=== PATIENT | female | born 1930 | race Caucasian/White ===

== ENCOUNTER 2019-03-19 09:22 | Emergency (ER) | payer MEDICARE, BC ==
--- NOTE | 2019-03-19 09:47 | EDM.PDOC ---
ED HPI GENERAL MEDICAL PROBLEM - General Chief Complaint: Gastrointestinal Problem Stated Complaint: MEDICAL VIA NORTH Time Seen by Provider: 03/19/19 09:30 Source of Information: Reports: Patient, EMS History Limitations: Reports: No Limitations - History of Present Illness INITIAL COMMENTS - FREE TEXT/NARRATIVE: 80-year-old female whose been feeling fatigued and shortness of breath with activity, dark stools for the last 3 or 4 days presented to the [facility] and was found to have a hemoglobin of 5.5. An ambulance was called and she was sent to the emergency room. She is not having pain in her stomach or abdomen. No nausea or vomiting. She does have significant arthritis pain from her neck to her tailbone, and his been taking frequent doses of naproxen over the past several days. Onset: Gradual Duration: Day(s): (Several days) Worsens with: Reports: Other (Activity causes more shortness of breath and dizziness) Associated Symptoms: Reports: Malaise, Weakness. Denies: Fever/Chills, Headaches - Related Data Allergies Allergy/AdvReac Type Severity Reaction Status Date / Time morphine Allergy Itching Verified 03/19/19 09:33 Home Meds: Home Meds Hydrochlorothiazide 12.5 mg PO DAILY 08/23/15 [History] Lisinopril [Prinivil] 20 mg PO DAILY 08/23/15 [History] Oxybutynin Chloride [Ditropan Xl] 5 mg PO BID 08/23/15 [History] Fluticasone Propionate [Flonase] 2 spray ALLIE DAILY 02/27/16 [History] Cyanocobalamin (Vitamin B-12) [Cyanocobalamin Injection] 1,000 mcg IJ Q30D 02/24 [History] Fexofenadine [Sherrie] 180 mg PO DAILY PRN 02/24/19 [History] Naproxen Sodium [Aleve] 220 mg PO BID PRN 03/19/19 [History] Past Medical History HEENT History: Reports: Impaired Vision, Macular Degeneration, Other (See Below) Other HEENT History: legally blind in left eye Cardiovascular History: Reports: High Cholesterol, Hypertension Genitourinary History: Reports: 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 Endocrine/Metabolic History: Reports: Obesity/BMI 30+ Hematologic History: Reports: B12 Deficiency, Blood Transfusion(s) Oncologic (Cancer) History: Reports: Uterine - Infectious Disease History Infectious Disease History: Reports: Chicken Pox, Measles, Mumps, Rubella - Past Surgical History HEENT Surgical History: Reports: Cataract Surgery, Eye Surgery, Laser Surgery, LASIK GI Surgical History: Reports: Appendectomy, Cholecystectomy, Colonoscopy Female Surgical History: Reports: Breast Biopsy, Hysterectomy Endocrine Surgical History: Reports: None Musculoskeletal Surgical History: Reports: Knee Replacement Oncologic Surgical History: Reports: Lumpectomy Social & Family History - Family History Family Medical History: Noncontributory - Caffeine Use Caffeine Use: Reports: Coffee ED ROS GENERAL - Review of Systems Review Of Systems: See Below Constitutional: Reports: Malaise. Denies: Fever, Chills HEENT: Reports: No Symptoms Respiratory: Reports: Shortness of Breath Cardiovascular: Denies: Chest Pain (With activity) GI/Abdominal: Reports: Melena. Denies: Abdominal Pain, Nausea, Vomiting : Reports: No Symptoms Musculoskeletal: Reports: Neck Pain, Back Pain (Chronic arthritic pain) Skin: Reports: Pallor Neurological: Reports: Dizziness, Weakness. Denies: Headache Psychiatric: Reports: No Symptoms ED EXAM, GENERAL - Physical Exam Exam: See Below Exam Limited By: No Limitations General Appearance: Alert, No Apparent Distress Eye Exam: Bilateral Eye: Other (Pale conjunctiva) Head: Atraumatic Respiratory/Chest: No Respiratory Distress, Lungs Clear Cardiovascular: Regular Rate, Rhythm. No: Tachycardia GI/Abdominal: Soft, Non-Tender Extremities: No: Pedal Edema Neurological: Alert, Oriented Psychiatric: Normal Affect, Normal Mood Skin Exam: Warm, Dry, Pallor Course - Vital Signs Last Recorded V/S: Last Vital Signs Temp 99 F 03/19/19 12:39 Pulse 72 03/19/19 12:39 Resp 19 03/19/19 12:39 BP 193/67 H 03/19/19 12:39 Pulse Ox 99 03/19/19 12:39 - Orders/Labs/Meds Orders: Active Orders 24 hr Category Date Time Status PATIENT RETYPE [BBK] Stat Lab 03/19/19 09:41 Results RED BLOOD CELLS LP [BBK] Stat Lab 03/19/19 09:41 Results TYPE AND SCREEN [BBK] Stat Lab 03/19/19 09:41 Results Labs: Laboratory Tests 03/19/19 03/19/19 03/19/19 Range/Units 09:41 10:00 10:00 WBC 6.3 (4.5-11.0) K/uL RBC 2.32 L (3.30-5.50) M/uL Hgb 7.0 L (12.0-15.0) g/dL Hct 22.8 L (36.0-48.0) % MCV 98 (80-98) fL MCH 30 (27-31) pg MCHC 31 L (32-36) % Plt Count 376 (150-400) K/uL Neut % (Auto) 51 (36-66) % Lymph % (Auto) 25 (24-44) % Rich % (Auto) 17 H (2-6) % Eos % (Auto) 7 H (2-4) % Baso % (Auto) 1 (0-1) % Sodium 140 (140-148) mmol/L Potassium 3.6 (3.6-5.2) mmol/L Chloride 106 (100-108) mmol/L Carbon Dioxide 23 (21-32) mmol/L Anion Gap 10.9 (5.0-14.0) mmol/L BUN 21 H (7-18) mg/dL Creatinine 0.8 (0.6-1.0) mg/dL Est Cr Clr Drug Dosing 34.91 mL/min Estimated GFR (MDRD) > 60 (>60) Glucose 102 (74-106) mg/dL Calcium 8.5 (8.5-10.1) mg/dL Blood Type A POSITIVE Gel Antibody Screen Negative Crossmatch See Detail - Re-Assessments/Exams Free Text/Narrative Re-Assessment/Exam: 03/19/19 10:05 2 units of packed RBCs were typed and crossed, transfusion will begin when the first unit is ready. The pain is drawn for CBC and BMP were done, hemoglobin here is 7.0. I did talk with the transferring physician from the clinic, a fingerstick hemoglobin was 5.5. Patient wants to be transferred to [facility]. We have no ICU beds available. 03/19/19 10:26 BMP is very reassuring, normal. I did get a call from her primary, he felt the chest x-ray looked normal but a call from radiology said there was a concern for a small right lower lobe infiltrate. The patient does not present clinically with pneumonia. I asked for the films to be transferred so they will be available to the hospitalist service in [facility], who kindly accepted transfer of the patient for inpatient evaluation and treatment for blood loss anemia. Departure - Departure Time of Disposition: 12:41 Disposition: DC/Tfer to Other 70 Clinical Impression: Acute blood loss anemia GI bleed Qualifiers: GI bleed type/associated pathology: melena Qualified Code(s): K92.1 - Melena - Discharge Information Referrals: PCP,None [Primary Care Provider] - Forms: ED Department Discharge Care Plan Goals: Patient will be transferred to [facility], acceptance by the hospitalist service at 10:20 AM. She will receive 2 units of packed RBC transfusion starting here in the emergency room and continued in route. - My Orders Last 24 Hours: My Active Orders 03/19/19 09:41 PATIENT RETYPE [BBK] Stat RED BLOOD CELLS LP [BBK] Stat TYPE AND SCREEN [BBK] Stat - Assessment/Plan Last 24 Hours: My Active Orders 03/19/19 09:41 PATIENT RETYPE [BBK] Stat RED BLOOD CELLS LP [BBK] Stat TYPE AND SCREEN [BBK] Stat
[2019-03-19 12:38] VITALS: PULSE 72
[2019-03-19 12:40] VITALS: BP 193/67
== END 2019-03-19 12:39 | disposition other institution (70) ==
LOC: JP.ED 09:22
DX: D62 Acute posthemorrhagic anemia (principal); K92.1 Melena; H54.40 Blindness, one eye, unspecified eye; I10 Essential (primary) hypertension; E66.9 Obesity, unspecified; Z68.29 Body mass index [BMI] 29.0-29.9, adult; Z88.6 Allergy status to analgesic agent; Z79.899 Other long term (current) drug therapy
CPT/HCPCS: 36415; 36430; 80048; 85025; 86850; 86900; 86901; 86920; 86922; 99285; P9016

== ENCOUNTER 2019-07-21 19:29 | Inpatient (IN) | payer MEDICARE, BC ==
[2019-07-21] MEDS ORDERED: Sodium Chloride 0.9% 10 ML Syringe FLUSH PRN ×2 (20:15)
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
--- NOTE | 2019-07-21 21:47 | CRLCT ---
INDICATION: Syncope, fall, headache TECHNIQUE: Head CT without contrast. COMPARISON: None. FINDINGS: CSF spaces: Within normal limits for age. Brain parenchyma: There are nonspecific low attenuation white matter changes consistent with chronic microvascular disease. No hemorrhage. Partially calcified 3.7 x 3.1 cm mass along posterior aspect right tentorium. This causes mild mass effect the 4th ventricle. There is no significant surrounding edema. No hydrocephalus. Skull base and calvarium: The visualized paranasal sinuses and mastoid air cells demonstrate no acute or significant findings. The visualized orbits are grossly unremarkable. No skull fractures. There is intracranial atherosclerosis. There is a 2.5 x 0.6 cm soft tissue mass at the vertex of the scalp. IMPRESSION: No acute abnormality. Partially calcified mass along the posterior aspect of the right tentorium. This likely represents a meningioma. Minimal mass effect on the 4th ventricle. No hydrocephalus. Recommend nonemergent MR with and without IV contrast for further evaluation. Soft tissue mass in the scalp at the vertex. Correlate with physical exam. Please note that all CT scans at this facility use dose modulation, iterative reconstruction, and/or weight-based dosing when appropriate to reduce radiation dose to as low as reasonably achievable. Dictated by Aisha Taylor MD @ Jul 21 2019 9:42PM Signed by Dr. Aisha Taylor @ Jul 21 2019 9:47PM
[2019-07-21] MEDS ORDERED: Acetaminophen 325 MG Tab PO ONE (22:09)
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
[2019-07-22] MEDS ORDERED: Albuterol 0.083% 2.5 MG/3 ML Neb Soln NEB PRN (00:12)
[2019-07-22] MEDS ORDERED: LORazepam 2 MG/ML SDV IV PRN (00:12)
[2019-07-22] MEDS ORDERED: Ondansetron 4 MG Tab.DIS PO PRN (00:12)
[2019-07-22] MEDS: cefTRIAXone 1 GM in Sodium Chloride 0.9% 50 ML IV SCH ×2 (00:20→22:06)
[2019-07-22] MEDS: Sodium Chloride 0.9% 1,000 ML IV SCH ×2 (00:25→08:32)
[2019-07-22] MEDS: oxyCODONE 5 MG Tab PO PRN ×3 (00:54→22:11)
[2019-07-22] MEDS: Acetaminophen 325 MG Tab PO PRN ×2 (05:05→19:21)
[2019-07-22] MEDS: Lisinopril 20 MG Tab PO SCH (08:13)
[2019-07-22] MEDS: Pantoprazole 40 MG Vial IVPUSH SCH (08:14)
[2019-07-22] MEDS: Hydrochlorothiazide 12.5 MG Cap PO SCH (08:15)
--- NOTE | 2019-07-22 11:56 | PCM.PN ---
- General Info Date of Service: 07/22/19 Subjective Update: Ms. Garibay is an 89-year-old woman who was admitted through the emergency department last night after she fell at home and was found to have underlying urinary tract infection. There was some question as to whether she had experienced a syncopal episode, she strongly denies having passed out and reports that this was a fall instead of syncope. She has developed some progressive weakness and has had difficulty with recent falls. She was noted to have an elevated alcohol level and admits to having 2 drinks every night. She had been diagnosed with urinary tract infection on the day prior to admission but had not started antibiotic therapy yet. Functional Status: Reports: Tolerating Diet, Ambulating, Urinating - Review of Systems General: Reports: Weakness, Fatigue. Denies: Fever, Chills Pulmonary: Reports: No Symptoms Cardiovascular: Reports: No Symptoms Gastrointestinal: Reports: No Symptoms Genitourinary: Reports: No Symptoms - Patient Data Vitals - Most Recent: Last Vital Signs Temp 97.2 F 07/22/19 10:00 Pulse 86 07/22/19 10:00 Resp 18 07/22/19 10:00 BP 145/46 H 07/22/19 10:00 Pulse Ox 96 07/22/19 10:00 Weight - Most Recent: 160 lb I&O - Last 24 Hours: Intake & Output 07/21/19 07/22/19 07/22/19 22:59 06:59 14:59 Intake Total 590 300 Output Total 400 250 Balance 190 50 Lab Results Last 24 Hours: Laboratory Results - last 24 hr 07/21/19 07/21/19 07/21/19 Range/Units 19:56 19:56 19:56 WBC 7.9 (4.5-11.0) K/uL RBC 3.56 (3.30-5.50) M/uL Hgb 11.5 L D (12.0-15.0) g/dL Hct 35.6 L (36.0-48.0) % MCV 100 H (80-98) fL MCH 32 H (27-31) pg MCHC 32 (32-36) % Plt Count 279 (150-400) K/uL Neut % (Auto) 47 (36-66) % Lymph % (Auto) 38 (24-44) % Sherman % (Auto) 11 H (2-6) % Eos % (Auto) 4 (2-4) % Baso % (Auto) 0 (0-1) % Sodium 140 (140-148) mmol/L Potassium 3.6 (3.6-5.2) mmol/L Chloride 103 (100-108) mmol/L Carbon Dioxide 21 (21-32) mmol/L Anion Gap 16.1 H (5.0-14.0) mmol/L BUN 20 H (7-18) mg/dL Creatinine 0.9 (0.6-1.0) mg/dL Est Cr Clr Drug Dosing 30.44 mL/min Estimated GFR (MDRD) 59 L (>60) Glucose 111 H (74-106) mg/dL Lactic Acid (0.4-2.0) mmol/L Calcium 8.5 (8.5-10.1) mg/dL Total Bilirubin 0.2 (0.2-1.0) mg/dL AST 13 L (15-37) U/L ALT 24 (12-78) U/L Alkaline Phosphatase 51 (46-116) U/L Total Protein 7.6 (6.4-8.2) g/dL Albumin 3.5 (3.4-5.0) g/dL Globulin 4.1 H (2.3-3.5) g/dL Albumin/Globulin Ratio 0.9 L (1.2-2.2) Urine Color (YELLOW) Urine Appearance (CLEAR) Urine pH (5.0-8.0) Ur Specific [place] (1.008-1.030) Urine Protein (NEGATIVE) mg/dL Urine Glucose (UA) (NEGATIVE) mg/dL Urine Ketones (NEGATIVE) mg/dL Urine Occult Blood (NEGATIVE) Urine Nitrite (NEGATIVE) Urine Bilirubin (NEGATIVE) Urine Urobilinogen (0.2-1.0) EU/dL Ur Leukocyte Esterase (NEGATIVE) Urine RBC (0-5) Urine WBC (0-5) Ur Epithelial Cells Amorphous Sediment Urine Bacteria Urine Mucus Ethyl Alcohol 129 mg/dL 07/21/19 07/21/19 07/22/19 Range/Units 20:39 21:18 01:15 WBC (4.5-11.0) K/uL RBC (3.30-5.50) M/uL Hgb (12.0-15.0) g/dL Hct (36.0-48.0) % MCV (80-98) fL MCH (27-31) pg MCHC (32-36) % Plt Count (150-400) K/uL Neut % (Auto) (36-66) % Lymph % (Auto) (24-44) % Sherman % (Auto) (2-6) % Eos % (Auto) (2-4) % Baso % (Auto) (0-1) % Sodium (140-148) mmol/L Potassium (3.6-5.2) mmol/L Chloride (100-108) mmol/L Carbon Dioxide (21-32) mmol/L Anion Gap (5.0-14.0) mmol/L BUN (7-18) mg/dL Creatinine (0.6-1.0) mg/dL Est Cr Clr Drug Dosing mL/min Estimated GFR (MDRD) (>60) Glucose (74-106) mg/dL Lactic Acid 3.4 H 2.6 H (0.4-2.0) mmol/L Calcium (8.5-10.1) mg/dL Total Bilirubin (0.2-1.0) mg/dL AST (15-37) U/L ALT (12-78) U/L Alkaline Phosphatase (46-116) U/L Total Protein (6.4-8.2) g/dL Albumin (3.4-5.0) g/dL Globulin (2.3-3.5) g/dL Albumin/Globulin Ratio (1.2-2.2) Urine Color Yellow (YELLOW) Urine Appearance Clear (CLEAR) Urine pH 6.0 (5.0-8.0) Ur Specific [place] 1.015 (1.008-1.030) Urine Protein Negative (NEGATIVE) mg/dL Urine Glucose (UA) Negative (NEGATIVE) mg/dL Urine Ketones Negative (NEGATIVE) mg/dL Urine Occult Blood Trace-lysed H (NEGATIVE) Urine Nitrite Negative (NEGATIVE) Urine Bilirubin Negative (NEGATIVE) Urine Urobilinogen 0.2 (0.2-1.0) EU/dL Ur Leukocyte Esterase Small H (NEGATIVE) Urine RBC 0-5 (0-5) Urine WBC 10-20 H (0-5) Ur Epithelial Cells Few Amorphous Sediment Few Urine Bacteria Rare Urine Mucus Not seen Ethyl Alcohol mg/dL 07/22/19 07/22/19 07/22/19 Range/Units 05:35 05:35 05:35 WBC 7.3 (4.5-11.0) K/uL RBC 3.29 L (3.30-5.50) M/uL Hgb 10.5 L (12.0-15.0) g/dL Hct 33.1 L (36.0-48.0) % MCV 101 H (80-98) fL MCH 32 H (27-31) pg MCHC 32 (32-36) % Plt Count 256 (150-400) K/uL Neut % (Auto) 57 (36-66) % Lymph % (Auto) 27 (24-44) % Sherman % (Auto) 12 H (2-6) % Eos % (Auto) 3 (2-4) % Baso % (Auto) 0 (0-1) % Sodium 141 (140-148) mmol/L Potassium 4.2 (3.6-5.2) mmol/L Chloride 107 (100-108) mmol/L Carbon Dioxide 22 (21-32) mmol/L Anion Gap 11.7 (5.0-14.0) mmol/L BUN 16 (7-18) mg/dL Creatinine 0.9 (0.6-1.0) mg/dL Est Cr Clr Drug Dosing 30.44 mL/min Estimated GFR (MDRD) 59 L (>60) Glucose 89 (74-106) mg/dL Lactic Acid 1.9 (0.4-2.0) mmol/L Calcium 7.8 L (8.5-10.1) mg/dL Total Bilirubin (0.2-1.0) mg/dL AST (15-37) U/L ALT (12-78) U/L Alkaline Phosphatase (46-116) U/L Total Protein (6.4-8.2) g/dL Albumin (3.4-5.0) g/dL Globulin (2.3-3.5) g/dL Albumin/Globulin Ratio (1.2-2.2) Urine Color (YELLOW) Urine Appearance (CLEAR) Urine pH (5.0-8.0) Ur Specific [place] (1.008-1.030) Urine Protein (NEGATIVE) mg/dL Urine Glucose (UA) (NEGATIVE) mg/dL Urine Ketones (NEGATIVE) mg/dL Urine Occult Blood (NEGATIVE) Urine Nitrite (NEGATIVE) Urine Bilirubin (NEGATIVE) Urine Urobilinogen (0.2-1.0) EU/dL Ur Leukocyte Esterase (NEGATIVE) Urine RBC (0-5) Urine WBC (0-5) Ur Epithelial Cells Amorphous Sediment Urine Bacteria Urine Mucus Ethyl Alcohol mg/dL Med Orders - Current: Current Medications Acetaminophen (Tylenol) 650 mg PO Q4H PRN PRN Reason: Pain (Mild 1-3)/fever Last Admin: 07/22/19 05:05 Dose: 650 mg Albuterol (Proventil Neb Soln) 2.5 mg NEB Q4H PRN PRN Reason: Shortness Of Breath/wheezing Hydrochlorothiazide (Hydrochlorothiazide) 12.5 mg PO DAILY [facility] Last Admin: 07/22/19 08:15 Dose: 12.5 mg Ceftriaxone Sodium 1 gm/ (Sodium Chloride) 50 mls @ 100 mls/hr IV Q24H [facility] Last Admin: 07/22/19 00:20 Dose: 100 mls/hr Lisinopril (Prinivil) 20 mg PO DAILY [facility] Last Admin: 07/22/19 08:13 Dose: 20 mg Lorazepam (Ativan) 1 mg IV Q6H PRN PRN Reason: Nausea/Vomiting Last Admin: 07/22/19 05:07 Dose: 1 mg Ondansetron HCl (Zofran Odt) 4 mg PO Q6H PRN PRN Reason: Nausea able to take PO Oxycodone HCl (Oxycodone) 5 mg PO Q4H PRN PRN Reason: Pain (moderate 4-6) Last Admin: 07/22/19 00:54 Dose: 5 mg Pantoprazole Sodium (Protonix Iv) 40 mg IVPUSH ACBREAKFAST [facility] Last Admin: 07/22/19 08:14 Dose: 40 mg Sodium Chloride (Saline Flush) 10 ml FLUSH ASDIRECTED PRN PRN Reason: Keep Vein Open Last Admin: 07/21/19 21:25 Dose: 10 ml Sodium Chloride (Saline Flush) 10 ml FLUSH ASDIRECTED PRN PRN Reason: Keep Vein Open Last Admin: 07/21/19 21:40 Dose: 10 ml Discontinued Medications Acetaminophen (Tylenol) 650 mg PO NOW ONE Stop: 07/21/19 22:10 Last Admin: 07/21/19 22:23 Dose: 650 mg Sodium Chloride (Normal Saline) 1,000 mls @ 125 mls/hr IV ASDIRECTED [facility] Last Admin: 07/22/19 08:32 Dose: 125 mls/hr - Exam Quality Assessment: DVT Prophylaxis General: Alert, Oriented, Cooperative, Mild Distress Lungs: Clear to Auscultation, Normal Respiratory Effort Cardiovascular: Regular Rate, Regular Rhythm, No Murmurs GI/Abdominal Exam: Soft, Non-Tender, No Organomegaly, No Distention Extremities: Non-Tender, No Pedal Edema Sepsis Event Note - Evaluation Sepsis Screening Result: No Definite Risk - Focused Exam Vital Signs: Vital Signs Temp Pulse Resp BP BP BP Pulse Ox 07/22/19 10:00 97.2 F 86 18 145/46 H 96 07/22/19 08:13 180/65 H 07/22/19 06:12 76 18 176/56 H 94 L 07/22/19 04:46 98.0 F 79 20 185/54 H 95 07/22/19 00:12 98 F 82 18 182/55 H 180/65 H 94 L Date Exam was Performed: 07/22/19 Time Exam was Performed: 11:51 - Problem List Review Problem List Initiated/Reviewed/Updated: Yes - My Orders Last 24 Hours: My Active Orders 07/22/19 11:02 Convert IV to Saline Lock [OM.PC] Routine 07/22/19 11:03 Consult to Physical Therapy [PT Evaluation and Treatment] [CONS] Routine - Plan Plan:: ASSESSMENT / PLAN Urinary Tract Infection-feeling moderately improved and somewhat stronger this morning -Saline lock IV -IV Antibiotic- Rocephin 1 gram IV every 24 hours -Tylenol, Motrin or Oxycodone for pain control -blood cultures x2 pending -urine culture pending Fall at home-denies losing consciousness, likely secondary to underlying weakness as well as urinary tract infection. CT scan of the head showed possible meningioma -MRI Brain w wo contrast ETOH use, blood alcohol level in ER noted to be 129 -CIWAA protocol Poor Vision - unable to read print, has glasses. -fall risk. Hypertension -continue outpatient medications Diarrhea -chronic Maintenance issues -Orders home meds: chronic medication -Nutrition: regular diet -Zavala catheter - not indicated -DVT: SCD -PPI; IV Protonix 40mg daily CODE STATUS: DNR/DNI request a natural . Admission status: Admit to [address] [place] [address] Admission justification. This patient will be admitted for inpatient services and is medically appropriate meeting medical necessity for inpatient admission as outlined in my documentation. I reasonably expect the patient will require inpatient services that span. Time over 2 midnights. I reasonably expect this patient to be discharged or transferred within 96 hours after admission to the [facility]. Disposition: home Primary care provider: Bernabe Early therapist for chronic neck pain and arthritis. Hospitalist: Dr. Pagan
[2019-07-22] MEDS ORDERED: Gadoteridol 279.3 MG/ML 15 ML SDV IV SCH (14:00)
--- NOTE | 2019-07-22 14:31 | CRLMR ---
Indication: Syncope. Fall. Headache. CT shows a mass. Technique: Performed before and after IV gadolinium. Contrast: 15 cc ProHance. Comparison: CT head from 07/21/2019. Findings: There is a well-circumscribed, uniformly enhancing extra-axial mass in the lateral aspect of the right posterior fossa. This abuts the posterior aspect of the petrous ridge, the inner table of the lateral aspect of the right occipital bone, and the undersurface of the right leaf of the tentorium. The mass measures 33 x 32 x 27 mm (AP by TR by CC), maximum dimension 37 mm. The underlying right transverse and sigmoid sinuses and their junction remain patent widely patent. There is moderate edema in the right cerebellar hemisphere, but only trace rightward shift and effacement of the 4th ventricle. No edema or reaction is seen in the compressed right cerebellar parenchyma. No other abnormal contrast enhancement involving the brain parenchyma, meninges, calvarium or skull base. No evidence for acute infarct or restricted diffusion. Moderate small vessel ischemic changes. Moderate cerebral atrophy. Grossly normal flow voids are maintained in the directly imaged intracranial vascular structures. Prominent thickening of the transverse odontoid ligament complex, with posterior displacement of the cervicomedullary junction and CSF effacement from the foramen magnum. No ronda high-grade neurologic compression in the MR scan position. Both temporal bones are clear. The paranasal sinuses are essentially clear. Impression: 1. There is an enhancing extra-axial mass in the lateral aspect of the right posterior fossa, maximum dimension 37 mm. The appearance is typical for meningioma. 2. Moderate localized mass effect. Minimal midline shift. No edema or reaction in the adjacent cerebellar parenchyma. 3. The subjacent transverse and sigmoid sinuses remain patent. 4. Background moderate small vessel ischemic changes and moderate cerebral atrophy noted. Dictated by Vipul Garcia MD @ Jul 22 2019 2:14PM Signed by Dr. Vipul Garcia @ Jul 22 2019 2:29PM
[2019-07-23] MEDS: oxyCODONE 5 MG Tab PO PRN ×2 (06:27→10:29)
[2019-07-23] MEDS: Pantoprazole 40 MG Vial IVPUSH SCH (07:27)
[2019-07-23] MEDS: Hydrochlorothiazide 12.5 MG Cap PO SCH (10:14)
[2019-07-23] MEDS: Lisinopril 20 MG Tab PO SCH (10:14)
[2019-07-23 12:35] VITALS: BP 169/51; PULSE 61
--- NOTE | 2019-07-23 14:54 | PCM.DCSUM1 ---
Discharge Summary - Hospital Course Brief History: Ms. Garibay is an 89-year-old woman who was admitted through the emergency department after a fall at home secondary to weakness and underlying urinary tract infection. - Discharge Data Discharge Date: 07/23/19 Discharge Disposition: Home, W Home Health Agency 06 Condition: Stable - Referral to Home Health Date of Face to Face Encounter: 07/23/19 Reason for Homebound Status: Weakness, meningioma Primary Care Physician: PCP None Skilled Need: Home care nurse follow-up, Occupational Therapy, physical therapy - Discharge Diagnosis/Problem(s) (1) Benign meningioma of brain SNOMED Code(s): 157488285 ICD Code: D32.0 - BENIGN NEOPLASM OF CEREBRAL MENINGES Status: Acute Current Visit: Yes (2) UTI (urinary tract infection) SNOMED Code(s): 96297648 ICD Code: N39.0 - URINARY TRACT INFECTION, SITE NOT SPECIFIED Status: Acute Priority: High Current Visit: Yes Qualifiers: Urinary tract infection type: acute cystitis Hematuria presence: with hematuria Qualified Code(s): N30.01 - Acute cystitis with hematuria (3) Alcohol abuse, daily use SNOMED Code(s): 945796775 ICD Code: F10.10 - ALCOHOL ABUSE, UNCOMPLICATED Status: Acute Priority: High Current Visit: Yes - Patient Summary/Data Consults: Consultations 07/22/19 11:03 Consult to Physical Therapy [PT Evaluation and Treatment] [CONS] Routine Please Evaluate and Treat. PT Reason for Consult: Weakness, recent fall This query below is only for informational purposes and is not editable. Admission Diagnosis/Problem: Urinary tract infection Hospital Course: Ms. Garibay is an 89-year-old woman who was admitted through the emergency department last after she fell at home and was found to have underlying urinary tract infection. There was some question as to whether she had experienced a syncopal episode, she strongly denies having passed out and reports that this was a fall instead of syncope. She has developed some progressive weakness and has had difficulty with recent falls. She was noted to have an elevated alcohol level and admits to having 2 drinks every night. She had been diagnosed with urinary tract infection on the day prior to admission but had not started antibiotic therapy yet. A CT scan of the head obtained in the emergency department showed evidence of a possible right-sided meningioma. Urine culture was obtained while in the emergency department. On admission to the hospital she was given IV fluids for hydration and started on antibiotic therapy with ceftriaxone. Urine culture later grew out only mixed silvino and she will take the rest of her oral antibiotic therapy prescribed prior to admission with ciprofloxacin. MRI with and without contrast was obtained on the day after admission it did show evidence of a right-sided meningioma 3.7 cm in size. MRI Was Reviewed by Dr. Hernandez [facility], he recommended follow-up with neurosurgery in the next few weeks. Appointment will be made with Dr. Kyler Bucsh at [facility] in [place]. She was seen by physical therapy prior to discharge and will use a walker at home. Home care services including home physical therapy and Occupational Therapy will be arranged for after discharge. Activity will be as tolerated and she will resume her usual diet. - Patient Instructions Diet: Usual Diet as Tolerated Activity: As Tolerated Other/Special Instructions: Please schedule follow-up appointment with primary care provider within 1 week. Please schedule neurosurgical consult for evaluation of right meningioma. Please arrange for home care services including home physical therapy and Occupational Therapy after discharge. - Discharge Plan *PRESCRIPTION DRUG MONITORING PROGRAM REVIEWED*: Not Applicable *COPY OF PRESCRIPTION DRUG MONITORING REPORT IN PATIENT KORINA: Not Applicable Prescriptions/Med Rec: Ciprofloxacin HCl [Cipro] 250 mg PO BID #6 tablet Home Medications: Home Meds Hydrochlorothiazide 12.5 mg PO DAILY 08/23/15 [History] Lisinopril [Prinivil] 20 mg PO DAILY 08/23/15 [History] Oxybutynin Chloride [Ditropan Xl] 5 mg PO BID 08/23/15 [History] Cyanocobalamin (Vitamin B-12) [Cyanocobalamin Injection] 1,000 mcg IJ Q30D 02/24 [History] Ciprofloxacin HCl [Cipro] 250 mg PO BID #6 tablet 07/23/19 [Rx] Referrals: Kyler Busch MD [Ordering Only Provider] - (neurology from [place] will call you with appointment time.) Burke Moyer MD [Physician] - 07/31/19 10:00 am - Discharge Summary/Plan Comment DC Time >30 min.: No - Patient Data Vitals - Most Recent: Last Vital Signs Temp 97.8 F 07/23/19 12:33 Pulse 61 07/23/19 12:33 Resp 18 07/23/19 12:33 BP 169/51 H 07/23/19 12:33 Pulse Ox 98 07/23/19 12:33 Weight - Most Recent: 167 lb 4.8 oz I&O - Last 24 hours: Intake & Output 07/22/19 07/23/19 07/23/19 22:59 06:59 14:59 Intake Total 290 120 Output Total 350 Balance -60 120 SHREYA Results - Last 24 hrs: Microbiology 07/21/19 21:21 Urine Culture - Preliminary Urine, Clean Catch MIXED POSITIVE SILVINO DAY 1 Med Orders - Current: Current Medications Acetaminophen (Tylenol) 650 mg PO Q4H PRN PRN Reason: Pain (Mild 1-3)/fever Last Admin: 07/22/19 19:21 Dose: 650 mg Albuterol (Proventil Neb Soln) 2.5 mg NEB Q4H PRN PRN Reason: Shortness Of Breath/wheezing Hydrochlorothiazide (Hydrochlorothiazide) 12.5 mg PO DAILY [facility] Last Admin: 07/23/19 10:14 Dose: 12.5 mg Ceftriaxone Sodium 1 gm/ (Sodium Chloride) 50 mls @ 100 mls/hr IV Q24H [facility] Last Admin: 07/22/19 22:06 Dose: 100 mls/hr Lisinopril (Prinivil) 20 mg PO DAILY [facility] Last Admin: 07/23/19 10:14 Dose: 20 mg Lorazepam (Ativan) 1 mg IV Q6H PRN PRN Reason: Nausea/Vomiting Last Admin: 07/22/19 05:07 Dose: 1 mg Ondansetron HCl (Zofran Odt) 4 mg PO Q6H PRN PRN Reason: Nausea able to take PO Oxycodone HCl (Oxycodone) 5 mg PO Q4H PRN PRN Reason: Pain (moderate 4-6) Last Admin: 07/23/19 10:29 Dose: 5 mg Pantoprazole Sodium (Protonix) 40 mg PO ACBREAKFAST [facility] Sodium Chloride (Saline Flush) 10 ml FLUSH ASDIRECTED PRN PRN Reason: Keep Vein Open Last Admin: 07/21/19 21:25 Dose: 10 ml Sodium Chloride (Saline Flush) 10 ml FLUSH ASDIRECTED PRN PRN Reason: Keep Vein Open Last Admin: 07/21/19 21:40 Dose: 10 ml Discontinued Medications Acetaminophen (Tylenol) 650 mg PO NOW ONE Stop: 07/21/19 22:10 Last Admin: 07/21/19 22:23 Dose: 650 mg Gadoteridol (Prohance) 15 ml IV .A DIRECTED [facility] Last Admin: 07/22/19 13:44 Dose: 15 ml Sodium Chloride (Normal Saline) 1,000 mls @ 125 mls/hr IV ASDIRECTED [facility] Last Admin: 07/22/19 08:32 Dose: 125 mls/hr Pantoprazole Sodium (Protonix Iv) 40 mg IVPUSH ACBREAKFAST [facility] Last Admin: 07/23/19 07:27 Dose: 40 mg - Exam General: Reports: Alert, Oriented, Cooperative, No Acute Distress Lungs: Reports: Clear to Auscultation, Normal Respiratory Effort Cardiovascular: Reports: Regular Rate, Regular Rhythm, No Murmurs GI/Abdominal Exam: Soft, Non-Tender, No Organomegaly, No Distention Neurological: Reports: No New Focal Deficit
[2019-07-24] MEDS ORDERED: Pantoprazole 40 MG Tab.CR PO SCH (07:30)
== END 2019-07-23 15:10 | disposition home health service (06) | DRG 690 ==
LOC: JP.ED 19:29 → JP.MS 23:26
PROVIDERS: ADMIT Hospitalist; ATTEND Hospitalist
DX: N30.00 Acute cystitis without hematuria (principal); N30.01 Acute cystitis with hematuria; H35.30 Unspecified macular degeneration; E87.2 Acidosis; D32.0 Benign neoplasm of cerebral meninges; F10.10 Alcohol abuse, uncomplicated; Y90.6 Blood alcohol level of 120-199 mg/100 ml; R19.7 Diarrhea, unspecified; Z66 Do not resuscitate; H54.7 Unspecified visual loss; E53.8 Deficiency of other specified B group vitamins; Z85.42 Personal history of malignant neoplasm of other parts of uterus; Z98.49 Cataract extraction status, unspecified eye; R53.1 Weakness; Z90.710 Acquired absence of both cervix and uterus; Z96.659 Presence of unspecified artificial knee joint; Z88.6 Allergy status to analgesic agent; E78.00 Pure hypercholesterolemia, unspecified; I10 Essential (primary) hypertension; M19.90 Unspecified osteoarthritis, unspecified site; M54.9 Dorsalgia, unspecified; G89.29 Other chronic pain; F32.9 Major depressive disorder, single episode, unspecified; E66.9 Obesity, unspecified; Z90.49 Acquired absence of other specified parts of digestive tract; Z88.5 Allergy status to narcotic agent; Z79.899 Other long term (current) drug therapy; Z68.32 Body mass index [BMI] 32.0-32.9, adult
CPT/HCPCS: 36415; 70450; 70553; 80048; 80053; 80307; 81001; 83605; 85025; 87086; 93005; 97163-GP; 97530-GP; 97535-GP; 99283; 99285-25; A9270-GY; A9579; C9113; J0696; J2060; J7030; J7050

== ENCOUNTER 2019-12-11 06:28 | Day surgery (SDC) | payer MEDICARE, BC ==
[2019-12-11] MEDS ORDERED: Sodium Chloride 0.9% 1,000 ML IV SCH (07:00)
[2019-12-11] MEDS ORDERED: fentaNYL 100 MCG/2 ML SDV ONE (07:27)
[2019-12-11] MEDS ORDERED: Propofol 200 MG/20 ML SDV ONE (07:27)
[2019-12-11 09:18] VITALS: BP 168/52; PULSE 55
--- NOTE | 2019-12-11 14:22 | OR ---
DATE OF PROCEDURE: 12/11/2019 SURGEON: Addison Brumfield MD FINDINGS: 1. Diverticulosis, significant throughout entire colon. 2. Polyp, ascending colon, completely removed using cold biopsy forceps. 3. No etiology for diarrhea, no colitis, no inflammatory processes, no other etiology to explain the symptoms. COMPLICATIONS: None. MOLDED RU[employer] CUTTER: None. PREOPERATIVE DIAGNOSIS: Screening colonoscopy/history of diarrhea. POSTOPERATIVE DIAGNOSIS: Screening colonoscopy/history of diarrhea. RISKS: Risks, benefits, alternatives, and limitations including, but not limited to infection, bleeding, and perforation were explained to the patient, who wished to proceed. PROCEDURE IN DETAIL: The patient was placed in left lateral decubitus position. Digital rectal exam was performed without abnormality. Scope was introduced and advanced atraumatically to the ileocecal valve. A photo was taken of this. Scope was brought back through the ascending, transverse, descending colon, and retroflexed. No evidence of old or new blood. No masses. The diverticulosis would be described as significant throughout the entire colon with most densely concentrated in the sigmoid colon. In the ascending colon, the polyp was identified and completely removed using cold biopsy forceps. No abnormalities on retroflexion. The patient tolerated the procedure well. Addison Brumfield MD /[id number]
== END 2019-12-11 10:00 | disposition home or self-care (01) ==
LOC: JP.SDS 06:28
PROVIDERS: ATTEND Surgery
DX: Z12.11 Encounter for screening for malignant neoplasm of colon (principal); D12.2 Benign neoplasm of ascending colon; K57.30 Diverticulosis of large intestine without perforation or abscess without bleeding; I10 Essential (primary) hypertension; E78.5 Hyperlipidemia, unspecified; K21.9 Gastro-esophageal reflux disease without esophagitis
CPT/HCPCS: 45380; 88305; J2704; J3010; J7030

== ENCOUNTER 2020-03-24 17:17 | Inpatient (IN) | payer MEDICARE, BC ==
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
[2020-03-24] MEDS ORDERED: Ketorolac 30 MG/ML SDV IVPUSH ONE (19:36)
[2020-03-24] MEDS ORDERED: Cyclobenzaprine 10 MG Tab PO ONE (19:36)
[2020-03-24] MEDS ORDERED: Polyethylene Glycol 3350 Powder 17 GM Packet PO PRN (22:06)
[2020-03-24] MEDS ORDERED: Albuterol 0.083% 2.5 MG/3 ML Neb Soln NEB PRN (22:06)
[2020-03-24] MEDS ORDERED: Docusate Sodium 100 MG Cap PO PRN (22:06)
[2020-03-24] MEDS ORDERED: LORazepam 0.5 MG Tab PO PRN (22:06)
[2020-03-24] MEDS ORDERED: Ketorolac 30 MG/ML SDV IM PRN (22:06)
[2020-03-24] MEDS ORDERED: Ondansetron 4 MG Tab.DIS PO PRN (22:06)
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
[2020-03-24] MEDS: Acetaminophen 325 MG Tab PO PRN (22:28)
[2020-03-24] MEDS: Sodium Chloride 0.9% 1,000 ML IV SCH (22:28)
[2020-03-24] MEDS: Metoprolol Tartrate 25 MG Tab PO SCH (22:29)
[2020-03-24] MEDS: Melatonin 3 MG Tab PO SCH (23:12)
[2020-03-25] MEDS: Sodium Chloride 0.9% 1,000 ML IV SCH (08:13)
[2020-03-25] MEDS: Lisinopril 20 MG Tab PO SCH (08:15)
[2020-03-25] MEDS: Hydrochlorothiazide 12.5 MG Cap PO SCH (08:16)
[2020-03-25] MEDS: Pantoprazole 40 MG Tab.CR PO SCH (08:16)
[2020-03-25] MEDS: amLODIPine 5 MG Tab PO SCH (08:16)
[2020-03-25] MEDS ORDERED: Pantoprazole 40 MG Tab.CR PO SCH (09:00)
[2020-03-25] MEDS ORDERED: Lidocaine 5% 700 MG Patch TOP PRN (09:53)
[2020-03-25] MEDS: Metoprolol Tartrate 25 MG Tab PO SCH ×2 (10:43→22:14)
[2020-03-25] MEDS: Acetaminophen 325 MG Tab PO PRN ×2 (10:50→22:14)
[2020-03-25] MEDS ORDERED: LORazepam 2 MG/ML SDV IVPUSH ONE (12:08)
[2020-03-25] MEDS ORDERED: Gadoteridol 279.3 MG/ML 15 ML SDV IV SCH (13:00)
--- NOTE | 2020-03-25 13:30 | CRLMR ---
Indication: Fall, history of meningioma. Technique: Noncontrast sagittal T1, axial FLAIR, T2 turbo spine echo, and diffusion weighted images. Supplemental post contrast T1 weighted axial and coronal sequences are provided after administration of 15 mL gadolinium-based IV contrast. Comparison: MRI 07/22/2019 Findings: Mild parenchymal volume loss and chronic microangiopathic white matter changes. The midline structures are centrally located with no evidence of shift. There are no suspicious intra or extra-axial fluid collections. No evidence of restricted diffusion to suggest acute ischemia. Stable 3.8 x 3.3 x 2.8 cm (AP by TR by CC) uniformly enhancing T2 hyperintense T1 hypointense extra-axial lesion along the right lateral posterior fossa with moderate mass effect on the right cerebellar hemisphere. No parenchymal signal abnormality to suggest vasogenic edema. The right transverse and sigmoid venous sinuses remain patent with normal flow voids. 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 No abnormal contrast enhancement involving the brain parenchyma, meninges, calvarium or skull base. Mild membrane thickening in the paranasal sinuses. Impression: 1. No evidence of acute intracranial abnormality. 2. 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 Stable mass effect on the right cerebellar hemisphere without vasogenic edema. 3. 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 Fitz Álvarez @ Mar 25 2020 1:29PM
[2020-03-25] MEDS: levETIRAcetam 250 MG Tab PO SCH ×2 (13:45→22:15)
--- NOTE | 2020-03-25 14:26 | PCM.PN ---
- General Info Date of Service: 03/25/20 Admission Dx/Problem (Free Text): 1. Fall 2. Chronic stable meningioma 3. Seizure disorder - new onset due #2 Subjective Update: Ms. Garibay was admitted on the overnight after sustaining a fall in her back yard while cleaning up. She states that she was trying to move a couple of sawhorses and plywood, stepped on a rail tie and fell onto her R back and side. The patient notes that she consumes about 1-2 vodkas per night. As we were talking the patient related a story from July 2019 when she was last admitted. The patient, at that time, noted that she had had an "episode" where she went down. When she awoke she was able to call for help but she stated that she thought she "rolled around" in her dinner because her clothes were saturated in food products. She had a similar episode last month where she felt "shaking" in bed and "twitch ing" then lost consciousness and awoke a few minutes later with her dog licking her face. In July 2019 she was diagnosed with a benign meningioma and at that time was recommended to Neurosurgery in [place]. At that time they declined to operate on the lesion. She has not been on any anti-epileptic medication in the interim. Functional Status: Reports: Pain Controlled, Tolerating Diet, Ambulating - Review of Systems General: Reports: No Symptoms HEENT: Reports: No Symptoms Pulmonary: Reports: No Symptoms Cardiovascular: Reports: No Symptoms Gastrointestinal: Reports: No Symptoms - Patient Data Vitals - Most Recent: Last Vital Signs Temp 97.1 F 03/25/20 11:42 Pulse 64 03/25/20 11:42 Resp 19 03/25/20 11:42 BP 135/70 03/25/20 11:42 Pulse Ox 96 03/25/20 13:28 Weight - Most Recent: 169 lb 11.213 oz I&O - Last 24 Hours: Intake & Output 03/24/20 03/25/20 03/25/20 22:59 06:59 14:59 Intake Total 1074 246 Output Total 600 350 Balance 474 -104 Lab Results Last 24 Hours: Laboratory Results - last 24 hr 03/25/20 Range/Units 06:45 Urine Color Yellow (YELLOW) Urine Appearance Slightly cloudy A (CLEAR) Urine pH 5.5 (5.0-8.0) Ur Specific [place] 1.020 (1.008-1.030) Urine Protein Negative (NEGATIVE) mg/dL Urine Glucose (UA) Negative (NEGATIVE) mg/dL Urine Ketones Negative (NEGATIVE) mg/dL Urine Occult Blood Negative (NEGATIVE) Urine Nitrite Negative (NEGATIVE) Urine Bilirubin Negative (NEGATIVE) Urine Urobilinogen 0.2 (0.2-1.0) EU/dL Ur Leukocyte Esterase Trace H (NEGATIVE) Urine RBC 0-5 (0-5) Urine WBC 5-10 H (0-5) Ur Epithelial Cells Moderate Amorphous Sediment Not seen Urine Bacteria Moderate Urine Mucus Few Med Orders - Current: Current Medications Acetaminophen (Tylenol) 650 mg PO Q4H PRN PRN Reason: Pain (Mild 1-3)/fever Last Admin: 03/25/20 10:50 Dose: 650 mg Documented by: Albuterol (Proventil Neb Soln) 2.5 mg NEB Q4H PRN PRN Reason: Shortness Of Breath/wheezing Amlodipine Besylate (Norvasc) 10 mg PO DAILY [facility] Last Admin: 03/25/20 08:16 Dose: 10 mg Documented by: Docusate Sodium (Colace) 100 mg PO BID PRN PRN Reason: Constipation Hydrochlorothiazide (Hydrochlorothiazide) 12.5 mg PO DAILY [facility] Last Admin: 03/25/20 08:16 Dose: 12.5 mg Documented by: Sodium Chloride (Normal Saline) 1,000 mls @ 100 mls/hr IV ASDIRECTED [facility] Last Admin: 03/25/20 08:13 Dose: 100 mls/hr Documented by: Ketorolac Tromethamine (Toradol) 15 mg IM Q6H PRN PRN Reason: Pain (moderate 4-6) Last Admin: 03/25/20 08:11 Dose: 15 mg Documented by: Levetiracetam (Keppra) 500 mg PO BID [facility] Last Admin: 03/25/20 13:45 Dose: 500 mg Documented by: Lidocaine (Lidoderm 5%) 700 mg TOP DAILY PRN PRN Reason: Pain Last Admin: 03/25/20 10:15 Dose: 700 mg Documented by: Lisinopril (Prinivil) 20 mg PO DAILY [facility] Last Admin: 03/25/20 08:15 Dose: 20 mg Documented by: Lorazepam (Ativan) 0.5 mg PO Q4H PRN PRN Reason: Anxiety Melatonin (Melatonin) 6 mg PO BEDTIME [facility] Last Admin: 03/24/20 23:12 Dose: 6 mg Documented by: Metoprolol Tartrate (Lopressor) 25 mg PO BID [facility] Last Admin: 03/25/20 10:43 Dose: 25 mg Documented by: Miscellaneous Information (Remove Patch) 1 ea TRDERM BEDTIME [facility] Ondansetron HCl (Zofran Odt) 4 mg PO Q6H PRN PRN Reason: Nausea able to take PO Pantoprazole Sodium (Protonix) 40 mg PO ACBREAKFAST [facility] Last Admin: 03/25/20 08:16 Dose: 40 mg Documented by: Polyethylene Glycol (Miralax) 17 gm PO DAILY PRN PRN Reason: Constipation Discontinued Medications Cyclobenzaprine HCl (Flexeril) 15 mg PO ONETIME ONE Stop: 03/24/20 19:37 Last Admin: 03/24/20 19:44 Dose: 15 mg Documented by: Gadoteridol (Prohance) 15 ml IV .A DIRECTED [facility] Stop: 03/25/20 13:01 Last Admin: 03/25/20 13:02 Dose: 15 ml Documented by: Ketorolac Tromethamine (Toradol) 15 mg IVPUSH ONETIME ONE Stop: 03/24/20 19:37 Last Admin: 03/24/20 19:44 Dose: 15 mg Documented by: Lorazepam (Ativan) 0.5 mg IVPUSH ONETIME ONE Stop: 03/25/20 12:09 Melatonin (Melatonin) 6 mg PO BEDTIME [facility] Pantoprazole Sodium (Protonix) 40 mg PO DAILY [facility] - Exam Quality Assessment: DVT Prophylaxis General: Alert, Oriented, Cooperative, No Acute Distress Lungs: Clear to Auscultation, Normal Respiratory Effort Cardiovascular: Regular Rate, Regular Rhythm GI/Abdominal Exam: Normal Bowel Sounds Extremities: Normal Inspection Skin: Warm, Dry, Intact Neurological: No New Focal Deficit, Normal Speech, Normal Tone Psy/Mental Status: Alert, Normal Affect, Normal Mood Sepsis Event Note - Evaluation Sepsis Screening Result: No Definite Risk - Focused Exam Vital Signs: Vital Signs Temp Pulse Pulse Resp BP BP Pulse Ox 03/25/20 13:28 96 03/25/20 11:42 97.1 F 64 19 135/70 99 03/25/20 10:43 64 135/70 11/06/20 08:16 180/75 H 03/25/20 08:15 180/75 H 03/25/20 08:07 180/72 H 03/25/20 07:56 96.9 F 53 L 17 201/59 H 96 03/25/20 07:23 90 L 03/25/20 04:00 16 - Problem List Review Problem List Initiated/Reviewed/Updated: Yes - My Orders Last 24 Hours: My Active Orders 03/25/20 09:53 Lidocaine 5% [Lidoderm 5%] 700 mg TOP DAILY PRN 03/26/20 14:19 CBC WITH AUTO DIFF [HEME] DAILY COMPREHENSIVE METABOLIC PN,CMP [CHEM] DAILY 03/27/20 14:19 CBC WITH AUTO DIFF [HEME] DAILY COMPREHENSIVE METABOLIC PN,CMP [CHEM] DAILY 03/28/20 14:19 CBC WITH AUTO DIFF [HEME] DAILY COMPREHENSIVE METABOLIC PN,CMP [CHEM] DAILY - Plan Plan:: ASSESSMENT / PLAN chief complaint: fall at home- back pain 89-year-old female who was in her yard, when she tried to olive picker a piece of wood and walk up an inclined area of her yard. She lost her balance and fell backwards striking her back and right shoulder hard on the ground. She did not hit her head, has no neck pain, denies any low back, pelvic or lower extremity injury. She was experiencing very sharp pain in her right shoulder and right back so started yelling for help. After 10 minutes someone who was walking by her and called the ambulance. She has no shortness of breath, she has a small amount of pain with a deep breath and the shoulder pain is improved now that she is lying still. Onset: Sudden at 4 pm HD#2 update: Discussion with the patient revealed concerning signs and symptoms of previously unknown seizure. The question is whether this is due to the meningioma, alcohol overuse/abuse or a combination of the two. The patient is a regular consumer of vodka "with meals" and she is somewhat dodgy on how often she has it and how much she consumes in a sitting. In a moment of candor it sounds like she actually has 1-2 vodkas with meals. This all together could be contributing to seizure episodes either through lowering of the seizure threshhold in the setting of a known focus in the meningioma, withdrawal or all of the above. ER Course- chest CT negative. Ms. Garibay was unable to ambulate without assist ance therefore will admit to observation for pain control. 1. HEENT No issues 2. Cardiac/Pulmonary No active issues, continue HEAD PACKAGER meds for HTN 3 Musculoskeletal: BACK PAIN SECONDARY TO FALL-will admit to observation for pain control. will have PO and OT consult in am -Admit Observation to [address] [place] [address] for further monitoring -IV Fluids for rehydration NS at 100 mL per hour -medicate for pain -consult to PT and OT 4. GI No issues 5. Renal and F/E/N No issues, ADAT, po hydration 6. ID UA negative for infection Negative for COVID 19 7. Neurological Has meningioma - stable without edema on MRI this PM. 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 Maintenance issues -Orders home meds: continue outpatient medication -Nutrition: regular diet -Zavala catheter not indicated at this time -DVT: SCD -PPI; Protonix 40 mg po daily -consult OT for discharge planning -consult PT for strengthening-ambulation CODE STATUS: FULL Admission status: Recommend Inpatient for new onset seizure in setting of meningioma Disposition; home with additional support from community Primary care provider: Blaine Moyer Hospitalist: Dr. Zavala
[2020-03-25] MEDS ORDERED: Melatonin 3 MG Tab PO SCH (21:00)
[2020-03-25] MEDS: Melatonin 3 MG Tab PO SCH (22:15)
[2020-03-26] MEDS: Acetaminophen 325 MG Tab PO PRN ×2 (06:28→13:54)
[2020-03-26] MEDS: Lisinopril 20 MG Tab PO SCH (09:10)
[2020-03-26] MEDS: Pantoprazole 40 MG Tab.CR PO SCH (09:10)
[2020-03-26] MEDS: Hydrochlorothiazide 12.5 MG Cap PO SCH (09:10)
[2020-03-26 09:11] VITALS: BP 160/80
[2020-03-26] MEDS: amLODIPine 5 MG Tab PO SCH (09:11)
[2020-03-26] MEDS: Metoprolol Tartrate 25 MG Tab PO SCH (09:11)
[2020-03-26] MEDS: levETIRAcetam 250 MG Tab PO SCH (09:11)
[2020-03-26] MEDS ORDERED: Cyclobenzaprine 10 MG Tab PO SCH ×2 (09:30→14:00)
[2020-03-26 09:50] VITALS: PULSE 54
--- NOTE | 2020-03-26 13:09 | PCM.DCSUM1 ---
Discharge Summary - Hospital Course Free Text/Narrative:: 1. New onset seizure disorder 2. Meningioma 3. EtOH abuse 4. Fall HPI Initial Comments: Ms. Reina Garibay is an 89 yo F admitted to [facility] on 03/24/2020 after a mechanical fall in her back yard. She notes that at that time she had been working on dinner, had a vodka or two and decided after dinner to work on some items in her back yard. She states that she lost her footing on a railroad tie in the back yard and fell onto her R back and shoulder. She called for help and EMS arrived to bring her to the ED. On HD #2 when she and I spoke in more detail about her "falls" we got into her EtOH history at length - she is a chronic daily user of EtOH (1-2 vodka's per day). She also notes that she had an episode in July of 2019 where she lost consciousness for a long period of time. When she was ready for discharge she noted that her blouse was completely saturated with her meal for that evening. She surmises that she thrashed or rolled around in the food. She had a second episode about 1 month [employer] where she noted twitching prior to losing consciousness. She awoke a few minutes later to her dog licking her face. She has a known R meningioma and this was followed up during the admission. At that time it was noted to be stable and without any edema. The patient was feared to have had an undiagnosed seizure disorder and was started on 500 mg po keppra twice daily. She is to follow up with PCP in 3-5 days and with Neurology in 1-2 wks. Diagnosis: Stroke: No - Discharge Data Discharge Date: 03/26/20 Discharge Disposition: Home, Self-Care 01 Condition: Good - Referral to Home Health Primary Care Physician: PCP None - Patient Summary/Data Consults: Consultations 03/24/20 22:06 OT Evaluation and Treatment [CONS] Routine Please Evaluate and Treat. OT Reason for Consult: Discharge Planning This query below is only for informational purposes and is not editable. Admission Diagnosis/Problem: Back pain PT Evaluation and Treatment [CONS] Routine Please Evaluate and Treat. PT Reason for Consult: Ambulation This query below is only for informational purposes and is not editable. Admission Diagnosis/Problem: Back pain - Patient Instructions Driving: Do Not Drive - Discharge Plan *PRESCRIPTION DRUG MONITORING PROGRAM REVIEWED*: No *COPY OF PRESCRIPTION DRUG MONITORING REPORT IN PATIENT KORINA: No Prescriptions/Med Rec: Cyclobenzaprine [Flexeril] 5 mg PO TID 10 Days #20 tablet levETIRAcetam [Keppra] 500 mg PO BID 30 Days #60 tablet Home Medications: Home Meds Hydrochlorothiazide 12.5 mg PO DAILY 08/23/15 [History] Lisinopril [Prinivil] 20 mg PO DAILY 08/23/15 [History] Oxybutynin Chloride [Ditropan Xl] 5 mg PO DAILY 08/23/15 [History] Cyanocobalamin (Vitamin B-12) [Cyanocobalamin Injection] 1,000 mcg IJ Q30D 02/24/19 [History] Acetaminophen [Tylenol Extra Strength] 1,000 mg PO Q4H PRN 12/09/19 [History] Ferrous Sulfate 325 mg PO BID 12/09/19 [History] Metoprolol Tartrate [Lopressor] 25 mg PO BID 12/09/19 [History] Omeprazole 40 mg PO DAILY 12/09/19 [History] amLODIPine Besylate [Amlodipine Besylate] 10 mg PO DAILY 12/09/19 [History] polyethylene glycoL 3350 [MiraLAX] 1 pkt PO DAILY PRN 12/09/19 [History] Acetaminophen [Tylenol] 650 mg PO Q4H PRN tablet 03/26/20 [Rx] Cyclobenzaprine [Flexeril] 5 mg PO TID 10 Days #20 tablet 03/26/20 [Rx] levETIRAcetam [Keppra] 500 mg PO BID 30 Days #60 tablet 03/26/20 [Rx] Oxygen Therapy Mode: Room Air Patient Handouts: Contusion, [id number] Forms: ED Department Discharge Referrals: Elizabeth uJlian DO [Physician] - 04/04/20 11:40 am (Please arrive 15 minutes early to register for appointment.) Enrique Benoit MD [Ordering Only Provider] - 03/31/20 1:30 pm (Pleasse arrive 15 minutes early to register for your appointment.) - Discharge Summary/Plan Comment DC Time >30 min.: Yes - Patient Data Vitals - Most Recent: Last Vital Signs Temp 98.4 F 11/07/20 08:30 Pulse 60 03/26/20 09:11 Resp 16 03/26/20 08:30 BP 160/80 H 03/26/20 09:11 Pulse Ox 96 03/26/20 08:30 Weight - Most Recent: 169 lb 11.213 oz I&O - Last 24 hours: Intake & Output 03/25/20 03/26/20 03/26/20 22:59 06:59 14:59 Intake Total 800 Balance 800 Lab Results - Last 24 hrs: Laboratory Results - last 24 hr 03/26/20 03/26/20 Range/Units 06:07 06:07 WBC 5.7 (4.5-11.0) K/uL RBC 2.79 L (3.30-5.50) M/uL Hgb 9.0 L (12.0-15.0) g/dL Hct 29.3 L (36.0-48.0) % MCV 105 H (80-98) fL MCH 32 H (27-31) pg MCHC 31 L (32-36) % Plt Count 330 (150-400) K/uL Neut % (Auto) 59 (36-66) % Lymph % (Auto) 23 L (24-44) % [place] % (Auto) 10 H (2-6) % Eos % (Auto) 8 H (2-4) % Baso % (Auto) 1 (0-1) % Sodium 139 L (140-148) mmol/L Potassium 4.0 (3.6-5.2) mmol/L Chloride 105 (100-108) mmol/L Carbon Dioxide 25 (21-32) mmol/L Anion Gap 13.0 (5.0-14.0) mmol/L BUN 16 (7-18) mg/dL Creatinine 0.9 (0.6-1.0) mg/dL Est Cr Clr Drug Dosing 30.44 mL/min Estimated GFR (MDRD) 59 L (>60) Glucose 102 (74-106) mg/dL Calcium 8.5 (8.5-10.1) mg/dL Total Bilirubin 0.3 (0.2-1.0) mg/dL AST 16 (15-37) U/L ALT 21 (12-78) U/L Alkaline Phosphatase 52 (46-116) U/L Total Protein 6.5 (6.4-8.2) g/dL Albumin 3.0 L (3.4-5.0) g/dL Globulin 3.5 (2.3-3.5) g/dL Albumin/Globulin Ratio 0.9 L (1.2-2.2) Med Orders - Current: Current Medications Acetaminophen (Tylenol) 650 mg PO Q4H PRN PRN Reason: Pain (Mild 1-3)/fever Last Admin: 03/26/20 06:28 Dose: 650 mg Documented by: Albuterol (Proventil Neb Soln) 2.5 mg NEB Q4H PRN PRN Reason: Shortness Of Breath/wheezing Amlodipine Besylate (Norvasc) 10 mg PO DAILY [facility] Last Admin: 03/26/20 09:11 Dose: 10 mg Documented by: Cyclobenzaprine HCl (Flexeril) 5 mg PO TID [facility] Last Admin: 03/26/20 09:27 Dose: 5 mg Documented by: Docusate Sodium (Colace) 100 mg PO BID PRN PRN Reason: Constipation Hydrochlorothiazide (Hydrochlorothiazide) 12.5 mg PO DAILY [facility] Last Admin: 03/26/20 09:10 Dose: 12.5 mg Documented by: Sodium Chloride (Normal Saline) 1,000 mls @ 100 mls/hr IV ASDIRECTED [facility] Last Admin: 03/25/20 08:13 Dose: 100 mls/hr Documented by: Ketorolac Tromethamine (Toradol) 15 mg IM Q6H PRN PRN Reason: Pain (moderate 4-6) Last Admin: 03/25/20 08:11 Dose: 15 mg Documented by: Levetiracetam (Keppra) 500 mg PO BID [facility] Last Admin: 03/26/20 09:11 Dose: 500 mg Documented by: Lidocaine (Lidoderm 5%) 700 mg TOP DAILY PRN PRN Reason: Pain Last Admin: 03/25/20 10:15 Dose: 700 mg Documented by: Lisinopril (Prinivil) 20 mg PO DAILY [facility] Last Admin: 03/26/20 09:10 Dose: 20 mg Documented by: Lorazepam (Ativan) 0.5 mg PO Q4H PRN PRN Reason: Anxiety Melatonin (Melatonin) 6 mg PO BEDTIME [facility] Last Admin: 03/25/20 22:15 Dose: 6 mg Documented by: Metoprolol Tartrate (Lopressor) 25 mg PO BID [facility] Last Admin: 03/26/20 09:11 Dose: 25 mg Documented by: Miscellaneous Information (Remove Patch) 1 ea TRDERM BEDTIME [facility] Last Admin: 03/25/20 22:15 Dose: Not Given Documented by: Ondansetron HCl (Zofran Odt) 4 mg PO Q6H PRN PRN Reason: Nausea able to take PO Pantoprazole Sodium (Protonix) 40 mg PO ACBREAKFAST [facility] Last Admin: 03/26/20 09:10 Dose: 40 mg Documented by: Polyethylene Glycol (Miralax) 17 gm PO DAILY PRN PRN Reason: Constipation Discontinued Medications Cyclobenzaprine HCl (Flexeril) 15 mg PO ONETIME ONE Stop: 03/24/20 19:37 Last Admin: 03/24/20 19:44 Dose: 15 mg Documented by: Cyclobenzaprine HCl (Flexeril) 5 mg PO TID [facility] Gadoteridol (Prohance) 15 ml IV .A DIRECTED [facility] Stop: 03/25/20 13:01 Last Admin: 03/25/20 13:02 Dose: 15 ml Documented by: Ketorolac Tromethamine (Toradol) 15 mg IVPUSH ONETIME ONE Stop: 03/24/20 19:37 Last Admin: 03/24/20 19:44 Dose: 15 mg Documented by: Lorazepam (Ativan) 0.5 mg IVPUSH ONETIME ONE Stop: 03/25/20 12:09 Last Admin: 03/25/20 12:15 Dose: 0.5 mg Documented by: Melatonin (Melatonin) 6 mg PO BEDTIME [facility] Pantoprazole Sodium (Protonix) 40 mg PO DAILY [facility] - Exam General: Reports: Alert, Oriented, Cooperative, No Acute Distress Lungs: Reports: Clear to Auscultation, Normal Respiratory Effort Cardiovascular: Reports: Regular Rate, Regular Rhythm, No Murmurs GI/Abdominal Exam: Normal Bowel Sounds, Soft, Non-Tender, No Distention, No Mass Back Exam: Reports: Normal Inspection, Full Range of Motion Extremities: Normal Inspection, Normal Range of Motion Skin: Reports: Warm, Dry, Intact Neurological: Reports: No New Focal Deficit Psy/Mental Status: Reports: Alert, Normal Affect, Normal Mood
== END 2020-03-26 14:35 | disposition home or self-care (01) | DRG 101 ==
LOC: JP.ED 17:17 → JP.MS 21:53
PROVIDERS: ADMIT Family Medicine; ATTEND Family Medicine
DX: S40.011A Contusion of right shoulder, initial encounter (principal); W18.30XA Fall on same level, unspecified, initial encounter; Y92.096 Garden or yard of other non-institutional residence as the place of occurrence of the external cause; G40.909 Epilepsy, unspecified, not intractable, without status epilepticus; M54.6 Pain in thoracic spine; D32.9 Benign neoplasm of meninges, unspecified; F10.10 Alcohol abuse, uncomplicated; W17.89XA Other fall from one level to another, initial encounter; E55.9 Vitamin D deficiency, unspecified; H54.7 Unspecified visual loss; Z88.6 Allergy status to analgesic agent; H35.30 Unspecified macular degeneration; E78.00 Pure hypercholesterolemia, unspecified; I10 Essential (primary) hypertension; M19.90 Unspecified osteoarthritis, unspecified site; G89.29 Other chronic pain; M54.2 Cervicalgia; F32.9 Major depressive disorder, single episode, unspecified; E66.9 Obesity, unspecified; E53.8 Deficiency of other specified B group vitamins; Z85.42 Personal history of malignant neoplasm of other parts of uterus; Z98.49 Cataract extraction status, unspecified eye; Z79.899 Other long term (current) drug therapy; Y92.009 Unspecified place in unspecified non-institutional (private) residence as the place of occurrence of the external cause; Z88.5 Allergy status to narcotic agent; Z91.013 Allergy to seafood; Z87.440 Personal history of urinary (tract) infections; Z90.49 Acquired absence of other specified parts of digestive tract; Z90.710 Acquired absence of both cervix and uterus; Z87.891 Personal history of nicotine dependence; Z20.828 Contact with and (suspected) exposure to other viral communicable diseases
CPT/HCPCS: 71250; 96374; 99285; A9270; J1885; 36415; 70553; 80053; 81001; 85025; 94762; 97162-GP; 97530-GP; A9579; J2060; J7030